=== PATIENT | male | born 1960 | race Two or more races ===

== ENCOUNTER 2022-05-30 10:16 | Emergency (ER) | payer OTHER ==
[~2022-05-30] VITALS: Ht 170.2 cm; Wt 70.3 kg
[2022-05-30] MEDS ORDERED: TENORMIN50 M1 (11:23)
[2022-05-30] MEDS ORDERED: COZAAR50 MG (11:23)
== END 2022-05-30 15:47 | disposition home or self-care (01) ==
LOC: ER 10:16
DX: M79.642 Pain in left hand (principal); R60.9 Edema, unspecified; R03.0 Elevated blood-pressure reading, without diagnosis of hypertension; I10 Essential (primary) hypertension